=== PATIENT | female | born 1970 | race Two or more races ===

== ENCOUNTER 2022-09-15 20:00 | Emergency (ER) | payer OTHER ==
[~2022-09-15] VITALS: Ht 157.5 cm; Wt 64.4 kg
[2022-09-15] MEDS ORDERED: COZAAR25 MG PO (20:29)
== END 2022-09-15 22:42 | disposition home or self-care (01) ==
LOC: ER 20:00
DX: R55 Syncope and collapse (principal); I10 Essential (primary) hypertension; Z88.0 Allergy status to penicillin